=== PATIENT | male | born 2000 | race Two or more races ===

== ENCOUNTER 2020-11-26 21:05 | Emergency (ER) | payer OTHER | END 2020-11-26 22:57 | disposition left against medical advice (07) | LOC: ER 21:05 | DX: Z53.21 Procedure and treatment not carried out due to patient leaving prior to being seen by health care provider (principal) ==

== ENCOUNTER 2020-11-27 17:06 | Emergency (ER) | payer OTHER ==
[~2020-11-27] VITALS: Ht 177.8 cm; Wt 68.0 kg
[2020-11-27] MEDS ORDERED: DIPHENHYDRAMINE 25MG CAPSULE PO ONE (22:15)
[2020-11-27] MEDS ORDERED: PROCHLORPERAZINE MALEATE 10MG TABLET PO ONE (22:15)
[2020-11-27] MEDS ORDERED: DEXAMETHASONE 4MG TABLET PO ONE (22:15)
[2020-11-27] MEDS ORDERED: KETOROLAC 60MG/2ML VIAL IM ONE (22:15)
[2020-11-27 23:33] VITALS: BP 122/89
== END 2020-11-27 23:35 | disposition home or self-care (01) ==
LOC: ER 17:06
DX: G44.209 Tension-type headache, unspecified, not intractable (principal)
CPT/HCPCS: 96372; 99284; J1885; J8540; Q0163; Q0164